=== PATIENT | female | born 2000 | race Caucasian/White ===

== ENCOUNTER 2022-09-29 10:40 | Emergency (ER) | payer MEDICAID ==
[~2022-09-29] VITALS: Ht 154.9 cm; Wt 68.9 kg
--- NOTE | 2022-09-29 10:41 | NUR ---
Patient BIBA to bed 9.
[2022-09-29 10:45] VITALS: BP 118/78
--- NOTE | 2022-09-29 10:45 | NUR ---
22F BIBA from a near by medical office for epigastric pain and SOB since today. PT reports having a similar episode of pain 1 week ago that lasted 15 minutes. Pt reports a constant, pressure like, 10/10 pain to epigastric area, the pain causes trouble breathing. Pt denies dizziness, N/V/D, fevers chills, or meds. Pt changed into gown and placed on bedside monitor.
[2022-09-29] MEDS ORDERED: MORPHINE SULFATE 2 MG/ML SYR IVP ONE (11:00)
[2022-09-29] MEDS ORDERED: FAMOTIDINE 20 MG/2 ML VIAL IVP ONE (11:00)
[2022-09-29] MEDS ORDERED: DICYCLOMINE HCL LIQUID 20 MG, ALUMINUM HYD/MAG/SIMETHICONE 30 ML, LIDOCAINE VISCOUS 2% ... PO ONE ×3 (11:10)
[2022-09-29] MEDS ORDERED: DICYCLOMINE HCL LIQUID 10 MG/5 ML UDC ONE (11:11)
[2022-09-29] MEDS ORDERED: ALUMINUM HYD/MAG/SIMETHICONE 30 ML UDC ONE (11:11)
[2022-09-29 11:31] LABS: BASOPHILS # (AUTO) 0.1 K/uL (0.00-0.22); BASOPHILS % (AUTO) 0.6 % (0.0-2.0); EOSINOPHILS # (AUTO) 0.4 K/uL (0-0.4); EOSINOPHILS % (AUTO) 4.2 % (0.0-4.0); HEMATOCRIT 41.7 % (36-48); HEMOGLOBIN 13.7 g/dL (12.0-16.0); LYMPHOCYTES # (AUTO) 2.9 K/uL (2.5-16.5); LYMPHOCYTES % (AUTO) 27.8 % (20.5-51.1); MEAN CORPUSCULAR HEMOGLOBIN 29 pg (27-31); MEAN CORPUSCULAR HGB CONC 33 g/dL (33-37); MEAN CORPUSCULAR VOLUME 87.9 fL (80-94); MONOCYTES # (AUTO) 0.4 K/uL (0.8-1.0); MONOCYTES % (AUTO) 4.3 % (1.7-9.3); NEUTROPHILS # (AUTO) 6.6 K/uL (1.8-7.7); NEUTROPHILS % (AUTO) 63.1 % (42.2-75.2); PLATELET COUNT (AUTO) 199 K/uL (140-450); RED BLOOD CELL COUNT(AUTO) 4.74 MIL/uL (4.20-5.40); RED CELL DISTRIBUTION WIDTH 13.6 % (11.6-13.7); WHITE BLOOD COUNT (AUTO) 10.5 K/uL (4.5-11.0)
[2022-09-29 11:41] LABS: ALBUMIN 3.8 g/dL (3.4-5.0); CARBON DIOXIDE 27.2 mmol/L (21-32); CREATININE 0.8 mg/dL (0.6-1.3); POTASSIUM 3.2 mmol/L (3.5-5.1); TOTAL BILIRUBIN 0.7 mg/dL (0.0-1.0)
--- NOTE | 2022-09-29 11:49 | NUR ---
Ultrasound at bedside.
[2022-09-29] MEDS ORDERED: SODIUM PHOS / POTASSIUM PHOS 1 PKT PDR PO SCH (13:15)
--- NOTE | 2022-09-29 13:50 | NUR ---
IV removed, catheter intact and site benign. Applied folded 4x4 gauze and tape to stop bleeding.
[2022-09-29 14:02] VITALS: BP 120/80
--- NOTE | 2022-09-29 14:02 | NUR ---
Patient discharged with v/s stable. Written and verbal after care instructions FOR CHOLETHIASIS given and explained. Patient verbalized understanding. Ambulatory with steady gait. All questions addressed prior to discharge. Advised to follow up with PMD.
== END 2022-09-29 14:02 | disposition home or self-care (01) ==
LOC: MED 10:40
DX: K80.20 Calculus of gallbladder without cholecystitis without obstruction (principal); Z88.8 Allergy status to other drugs, medicaments and biological substances
CPT/HCPCS: 36415; 76705; 80053; 83690; 84703; 85025; 96374; 96375; 99284; J2270; J3490; Q0092